=== PATIENT | female | born 1970 | race Caucasian/White ===

== ENCOUNTER 2020-01-10 10:20 | Emergency (ER) | payer OTHER ==
[~2020-01-10] VITALS: Ht 162.6 cm; Wt 54.4 kg
== END 2020-01-10 14:12 | disposition home or self-care (01) ==
LOC: ER 10:20
DX: N83.291 Other ovarian cyst, right side (principal); Z03.818 Encounter for observation for suspected exposure to other biological agents ruled out; R43.0 Anosmia; R05 Cough; R10.31 Right lower quadrant pain; R10.11 Right upper quadrant pain

== ENCOUNTER 2022-03-12 08:16 | Outpatient (CLI) | payer OTHER | END 2022-03-12 08:28 | disposition home or self-care (01) | LOC: LAB 08:16 | PROVIDERS: ATTEND Internal Medicine Sports Medicine | DX: D64.9 Anemia, unspecified (principal); E11.9 Type 2 diabetes mellitus without complications; E78.2 Mixed hyperlipidemia; I10 Essential (primary) hypertension; E03.8 Other specified hypothyroidism; R55 Syncope and collapse ==

== ENCOUNTER → 2022-03-12 | Outpatient (CLI) | payer OTHER | END | disposition home or self-care (01) | LOC: NUCLEAR 06:45 | PROVIDERS: ATTEND Internal Medicine Sports Medicine | DX: R55 Syncope and collapse (principal); Z88.0 Allergy status to penicillin ==

== ENCOUNTER 2022-04-16 10:28 | Outpatient (CLI) | payer OTHER | END 2022-04-16 10:39 | disposition home or self-care (01) | LOC: NUCLEAR 10:28 | PROVIDERS: ATTEND Internal Medicine Sports Medicine | DX: R55 Syncope and collapse (principal) ==